=== PATIENT | male | born 1940 | race Caucasian/White ===

== ENCOUNTER 2018-07-23 09:45 | Day surgery (SDC) | payer MEDICARE, OTHER ==
[2018-07-22 11:43] LABS: International Normalized Ratio 1.03; Prothrombin Time Results 10.9 Sec (9.7-11.5)
[~2018-07-23] VITALS: Ht 175.3 cm; Wt 85.0 kg
[~2018-07-23 09:45] MED LIST: COUMADIN; MAGNESIUM250 MG PO; MIRT30ST PO; Percocet 5-3251 EACH PO; VITAMIN B-121000 MCG PO; VITAMIN D31000 UNIT PO; WARF2.5 PO; WARF3 PO; WARF5 PO; WARF7.5 PO
--- NOTE | 2018-07-23 11:51 | NUR ---
07/23/18 [address] GROUNDING PAD PLACED ON RT FLANK
--- NOTE | 2018-07-23 12:31 | NUR ---
07/23/18 [address] NURSE ASSISTED PATIENT WALK OUT TO HIS RIDE HOME
== END 2018-07-23 12:25 | disposition home or self-care (01) ==
LOC: ORSCSDS 09:45
PROVIDERS: Surgery
PROC: 0DBK8ZX Excision of Ascending Colon, Via Natural or Artificial Opening Endoscopic, Diagnostic (ICD-10-PCS; principal; 2018-07-23 11:00)
DX: Z12.11 Encounter for screening for malignant neoplasm of colon (principal); Z86.010 Personal history of colon polyps; D12.2 Benign neoplasm of ascending colon; K57.30 Diverticulosis of large intestine without perforation or abscess without bleeding; I48.91 Unspecified atrial fibrillation; Z79.01 Long term (current) use of anticoagulants; G47.33 Obstructive sleep apnea (adult) (pediatric)
CPT/HCPCS: 36415; 85610; 88305; J2405; J7120

== ENCOUNTER → 2019-09-20 | Outpatient (CLI) | payer MEDICARE, OTHER | END | disposition home or self-care (01) | DX: L57.0 Actinic keratosis (principal) ==

== ENCOUNTER 2019-11-01 05:57 | Day surgery (SDC) | payer MEDICARE, OTHER ==
[~2019-11-01] VITALS: Ht 177.8 cm; Wt 84.0 kg
[2019-11-01] MEDS ORDERED: ATOR20 PO (06:30)
[2019-11-01] MEDS ORDERED: FURO20 PO (06:31)
[2019-11-01] MEDS ORDERED: CEPH500 PO (09:09)
--- NOTE | 2019-11-01 13:17 | NUR ---
PT PREVIOUSLY TAKEN TO IMAGING FOR CXR VIA W/C NADN DURING TRANSPORT. PT HAS BEEN AMBULATORY TO RESTROOM MULTIPLE TIMES, UNMEASURED VOID. DR. SHAH AT BEDSIDE DISCUSSING DISCHARGE INFORMATION WITH PT. PACEMAKER INTERROGATION IN PROGRESS BY JARED MENON.
--- NOTE | 2019-11-01 15:08 | NUR ---
PT DRESSED, 2V CXR, DEVICE CHECK, 2 GRAMS ANCEF ALL COMPLETED, CALLED, IV DC'D INTACT, PT DC'D WITH SON DRIVING PT HOME. UPPER L CHEST DEVICE SITE STABLE, PT'S L ARM IN SLING PER ORDER
== END 2019-11-01 15:00 | disposition home or self-care (01) ==
LOC: MHTC 05:57
DX: I49.5 Sick sinus syndrome (principal); I48.21 Permanent atrial fibrillation; E78.5 Hyperlipidemia, unspecified; Z79.01 Long term (current) use of anticoagulants; Z79.899 Other long term (current) drug therapy
CPT/HCPCS: 33207; 71046; 99152; 99153; C1786; C1894; J0690; J1644; J2250; J3010; J7030; J7040